=== PATIENT | male | born 1960 | race Caucasian/White ===

== ENCOUNTER 2025-03-02 21:15 | Emergency (ER) | payer MEDICARE, BC ==
[~2025-03-02] VITALS: Ht 177.8 cm; Wt 70.8 kg
[2025-03-02 22:18] LABS: CALCIUM, SERUM 9.0 mg/dL (8.5-10.1); CREATININE 1.4 mg/dL (0.6-1.3); SODIUM SERUM 143 mmol/L (136-145); UREA NITROGEN, BLOOD 16 mg/dL (7-18)
[2025-03-02 23:20] LABS: PLATELET COUNT (AUTO) 200 K/uL (150-450); RED BLOOD CELL COUNT(AUTO) 4.89 MIL/uL (4.5-6.0); RED CELL DISTRIBUTION WIDTH 13.7 % (11.5-15.0); WHITE BLOOD COUNT (AUTO) 7.8 K/uL (4.3-11.0)
[2025-03-02 23:54] VITALS: BP 125/75; TEMP 98; O2SAT 99
== END 2025-03-03 | disposition home or self-care (01) ==
LOC: ER 21:23
DX: K21.9 Gastro-esophageal reflux disease without esophagitis (principal); I10 Essential (primary) hypertension; Z79.899 Other long term (current) drug therapy
CPT/HCPCS: 36415; 71045-TC; 80048-TC; 84484-TC; 85025-TC

== ENCOUNTER → 2025-05-06 | Emergency (ER) | payer MEDICARE, BC ==
[~2025-05-06] VITALS: Ht 177.8 cm; Wt 74.8 kg
[2025-05-06 15:31] VITALS: TEMP 97.8
[2025-05-06 17:27] VITALS: BP 135/75; O2SAT 100
== END | disposition left against medical advice (07) ==
LOC: ER 15:30
DX: R07.2 Precordial pain (principal); I10 Essential (primary) hypertension; K21.9 Gastro-esophageal reflux disease without esophagitis